=== PATIENT | male | born 1945 | race Caucasian/White ===

== ENCOUNTER 2017-10-18 14:38 | Emergency (ER) | payer OTHER ==
[2017-10-18 15:07] VITALS: BP 145/74
[2017-10-18] MEDS ORDERED: LET GEL TOPICAL 1 EA SYR TP ONE (15:08)
--- NOTE | 2017-10-18 15:12 | EDPHY ---
H & P Time Seen by Provider: 10/18/17 15:01 HPI/ROS: CHIEF COMPLAINT: Facial injury HISTORY OF PRESENT ILLNESS: 72-year-old gentleman was coming down some concrete steps when he stumbled, catching his shoe on the edge of a step, and fell forward, he caught himself with his right hand but struck his forehead and nasal bridge on the step. Denies loss of consciousness. Reports that it was a mechanical trip and fall. Denies any preceding symptoms such as shortness of breath, palpitations, lightheadedness, dizziness, or fainting. Takes no blood thinners. Denies neck pain, chest pain, or shortness of breath. Does report some achy discomfort in the small finger of his right hand where he caught himself. Patient was otherwise well prior to the event. REVIEW OF SYSTEMS: Aside from elements discussed in the HPI, a comprehensive 10-point review of systems was reviewed and is negative. PAST MEDICAL HISTORY: Hypothyroidism. SOCIAL HISTORY: Noncontributory. Nonsmoker. VITAL SIGNS: Reviewed by me; see NN. GENERAL: Well-developed, well-nourished, in no acute distress. HEENT: Head: Atraumatic, normocephalic. Face: Superficial abrasion on the central forehead. Triangular shaped abrasion over the nasal bridge. No bony tenderness in the supraorbital or infraorbital rims. No maxillary tenderness. No mandible tenderness. Normal occlusion. Normal dental alignment. No epistaxis. PERRL, EOMI, no nystagmus. Oropharynx: No trauma, normal occlusion. Neck: Nontender to palpation, no pain with range of motion, no adenopathy. CHEST: Nontender, no subcutaneous air palpable. LUNGS: Clear to auscultation bilaterally, breath sounds are equal. CARDIAC: Regular rate and rhythm, no rubs, murmurs or gallops. ABDOMEN: Soft, nontender, nondistended, bowel sounds normal. BACK: No CVA tenderness, no spinal tenderness. EXTREMITIES: Tenderness and slight abrasion at the tip of the 5th digit, right hand. PULSES: 2+ and equal throughout. NEURO: Alert and oriented x3, cranial nerves are intact throughout, normal motor , normal sensation. SKIN: Warm and dry, no rash. Constitutional: Initial Vital Signs Temperature (C) 37.1 C 10/18/17 15:03 Heart Rate 84 10/18/17 15:03 Respiratory Rate 16 10/18/17 15:03 Blood Pressure 145/74 H 10/18/17 15:03 O2 Sat (%) 94 10/18/17 15:03 O2 Delivery Mode Room Air Allergies/Adverse Reactions: No Known Allergies Allergy (Unverified 10/18/17 15:07) Home Medications: Medication Instructions Recorded Levothyroxine 10/18/17 MDM/Departure - MDM Medications Given: Discontinued Medications Tetracaine/Epinephrine/Lidocaine (Let Gel Topical) 1 ea TP EDNOW ONE Stop: 10/18/17 15:09 Last Admin: 10/18/17 15:13 Dose: 1 ea ED Course/Re-evaluation: Abrasion on the forehead cleaned and dressed. Superficial laceration on the bridge of the nose cleaned per tech staff. Closed with Dermabond. Procedure: Laceration repair. The 1 cm in total length laceration on the nasal bridge was anesthetized using topical LET. The wound was cleaned and irrigated per nursing and tech documentation. The wound was repaired with Dermabond. The wound repair was simple. The procedure was performed by myself. Patient is aware the laceration will have a scar. Differential Diagnosis: Differential diagnosis for the patient's injury was considered including but not limited to contusion, abrasion, laceration, fracture, open fracture, or dislocation. - Depart Disposition: Home, Routine, Self-Care Clinical Impression: Laceration Facial injury Qualifiers: Encounter type: initial encounter Qualified Code(s): S09.93XA - Unspecified injury of face, initial encounter Condition: Good Instructions: Head Injury (ED), Skin Adhesive Care (ED), Facial Contusion (ED) Additional Instructions: Tylenol as needed for discomfort. Do not pick at the skin glue. Do not use antibiotic cream on top of the skin glue. Skin glue will dissolve and come off on its own within the next 5-7 days. Observe for signs of any significant head injury. Referrals: CHRIS NEGRON [Primary Care Provider] - As per Instructions
[2017-10-18] MEDS ORDERED: SKIN ADHESIVE (DERMABOND) 1 EACH TP ONE (15:47)
== END 2017-10-18 16:00 | disposition home or self-care (01) ==
LOC: CED 14:38
PROC: 09QKXZZ Repair Nasal Mucosa and Soft Tissue, External Approach (ICD-10-PCS; principal; 2017-10-18)
DX: S01.21XA Laceration without foreign body of nose, initial encounter (principal); W01.198A Fall on same level from slipping, tripping and stumbling with subsequent striking against other object, initial encounter